=== PATIENT | female | born 1990 | race Caucasian/White ===

== ENCOUNTER 2021-12-25 16:57 | Outpatient (CLI) | payer BC, SELFPAY ==
--- NOTE | 2021-12-25 17:00 | CRLHL7_ITS ---
For Patients: As a result of the Century Cures Act, medical imaging exams and procedure reports are released immediately into your electronic medical record. You may view this report before your referring provider. If you have questions, please contact your health care provider. INDICATION: Pelvic pain COMPARISON: none TECHNIQUE: 2D escalante scale and color Doppler images were acquired of the pelvis using a transabdominal and transvaginal approach. Spectral Doppler evaluation of the ovaries also performed. FINDINGS: Heart shaped septate uterus is noted with the right endometrial horn measuring 1.4 cm and the left endometrial horn measuring 1.1 cm. Uterus measures 8.9 cm in length by 4.5 cm in AP diameter by 6.5 cm in transverse dimension. No uterine fibroid. The right ovary measures 4.4 x 1.8 x 2.0 cm in size and the left ovary measures 5.7 x 3.2 x 2.8 cm. The ovaries demonstrate normal arterial and venous blood flow on color Doppler analysis. Normal spectral Doppler evaluation of the ovaries without torsion. Left ovarian volume is increased measuring 26 cc. There is also a hemorrhagic left ovarian cyst measuring 3.5 x 2.5 x 2.7 cm demonstrating typical internal reticular echoes. Mild physiologic free fluid. There are no suspicious fluid collections within the cul-de-sac. IMPRESSION: No ovarian torsion. 3.5 cm hemorrhagic left ovarian cyst. Dictated by Rony Tai MD @ 12/26/2021 10:31:25 AM (Electronically Signed)
== END 2021-12-25 16:58 | disposition home or self-care (01) ==
LOC: US 16:58
PROVIDERS: Visit Provider Obstetrics & Gynecology
DX: R10.2 Pelvic and perineal pain (principal); N83.202 Unspecified ovarian cyst, left side
CPT/HCPCS: 76830; 76856; 93976

== ENCOUNTER 2022-01-23 07:42 | Day surgery (SDC) | payer BC, SELFPAY ==
[2022-01-23] VITALS (13 sets, daily range): BP systolic 104–144; BP diastolic 58–87; PULSE 62–100; RESP 12–18; TEMP 36.4–36.6; O2SAT 95–100; BMI 22.2
[2022-01-23] MEDS: LACTATED RINGERS 1000 ML 1,000 ML 100 ML IV (08:05)
[2022-01-23] MEDS: SODIUM CHLORIDE 0.9 % (FLUSH) 10 ML SYRINGE IVF (08:05)
[2022-01-23 08:27] LABS: Ur HCG Qualitative* Negative (Negative)
[2022-01-23 08:42] LABS: Hemoglobin* 11.9 gm/dL (12.0-16.0)
[2022-01-23] MEDS: DOXYCYCLINE HYCLATE 100 MG CAPSULE 200 MG PO (08:53)
[2022-01-23] MEDS: BUPIVACAINE 0.5% 30 ML INJECTION (11:15)
--- NOTE | 2022-01-23 13:13 | W.ANESCHARGE ---
Anesthesia Charges Start Date/Time Anesthesia Start Date: 01/23/22 Anesthesia Start Time: 10:42 Stop Date/Time Anesthesia Stop Date: 01/23/22 Anesthesia Stop Time: 13:20 Summary Emergency: No
[2022-01-23] MEDS: MEPERIDINE 25 MG/ML INJ 12.5 MG IVP (13:17)
[2022-01-23] MEDS: KETOROLAC 30 MG/ML inj IVP (13:29)
--- NOTE | 2022-01-23 13:32 | W.ANESCHARGE ---
Anesthesia Charges Start Date/Time Anesthesia Start Date: 01/23/22 Anesthesia Start Time: 10:42 Stop Date/Time Anesthesia Stop Date: 01/23/22 Anesthesia Stop Time: 13:20 Summary Emergency: No
[2022-01-23] MEDS: ACETAMINOPHEN 1,000 MG/100 ML INJ 1000 MG IVPB (13:43)
[2022-01-23] MEDS: METOCLOPRAMIDE HCL 5 MG/ML INJ 10 MG IVP (13:55)
[2022-01-23] MEDS: PROMETHAZINE 25 MG/ML INJ 12.5 MG IVP (15:00)
--- NOTE | 2022-01-24 08:19 | P.GYNPRC_ITS ---
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 Intrauterine survey with hysteroscopy: Fundal indentation of more than 1cm. Bilateral tubal ostia seen. Intra abdominal survey: Grossly normal liver, gallbladder, stomach, intestines. Pelvis: Endometriosis implants at the anterior cul de sac, anterior abdominal wall, there are some lesions that look dark brown in color, others look as clear vesicles with associated scarring. Endometrial implants seen at the bilateral uterosacral ligaments with associated scarring. Small implants seen at the bilateral ovarian fossae. Uterine fundus is NOT heart shaped, anterior uterine wall a subserosal fibroid is seen of about 2cm. Posterior uterine wall a small fibroid of about 1cm is seen, this also seems subserosal. Endometriosis lesions are seen at the uterine fundus. Right fallopian tube is grossly normal, right ovary with a small pinpoint endometriosis like implant, otherwise grossly normal. Left sigmoid epiploica thin adhesions to the left pelvic sidewall impeding visualization of the left fallopian tube and ovary, left fallopian tube and ovary initially adhered and unable to flip for visualization, after lysis of adhesions, left fallopian tube looked thicker, convoluted and adhered to the left infundibulopelvic ligament. Left ovary of normal size with evidence of a small hemorrhagic cyst of about 1- 2cm. Chromopertubation study: No spillage of dye through the left fallopian tube, it looked to remain stuck at the ampullary region. Easy spillage of dye seen from the right fallopian tube. Patient was taken to the OR with IV fluid running and pneumatic compression stockings applied to the lower extremities. General anesthesia was obtained without difficulty. The patient was placed in the dorsal lithotomy position with Mina type stirrups with knee bent at 30 degree angles. Patient was prepared and draped under usual sterile technique. Examination under anesthesia revealed a normal size, midline uterus. The bladder was emptied and Tanner catheter placed. Speculum was placed in the vagina.0.5% Marcaine was injected at 2 and 11 o'clock a total of about 5mL utilized. A single-tooth tenaculum was used to grasp the anterior lip of the cervix. The uterus was carefully sounded to 8 cm. The cervical os was sequentially dilated to accommodate the 5 mm TrueClear hysteroscope using Hegar dilators. A 5 mm 30 degree TrueClear hysteroscope was introduced under direct visualization, and the uterus was distended with normal saline. Findings as above. Pictures taken for documentation purposes. A uterine manipulator was introduced. Two Allis clamps were applied to the periumbilical skin for manual elevation of the abdomen. A vertical skin incision was made in the umbilical fold. 5 mm Optiview trocar introduced into the peritoneal cavity without difficulty. Direct visualization confirmed intraperitoneal placement. Pneumoperitoneum was established with CO2 gas to a pressure of 15mmHg. Findings as above. An intra- abdominal survey revealed normal-appearing liver, gallbladder, spleen, and lack of any visceral or vascular injury. The Trendelenburg position was obtained to facilitate pelvic exposure. One 5 mm trocars was inserted on the left lower quadrant under direct laparoscopic visualization. A second 5mm trocar was inserted at the level of the umbilicus about 4cm to the left of the umbilicus under direct visualization. Findings as above. Anterior peritoneum/abdominal wall endometriosis implants were excised utilizing laparoscopic [place] and scissors. Other implants were fulgurated utilizing [place] and monopolar energy, always making sure that adequate elevation of the peritoneum was performed to avoid direct contact to any near structures such as the bladder. The left sigmoid colon epiploica thin adhesions were taken down sequentially with laparoscopic scissors. This allowed exposure to the left fallopian tube and ovary. Findings as above. Tubal dye study was performed next. Methylene blue dye, diluted solution in saline was introduced through uterine manipulator and laparoscopic visualization was performed. Findings as above. Decision made to perform left salpingectomy. Utilizing the LigaSure bipolar device, starting from the fimbrial end the mesosalpinx was sequentially clamped, coagulated and cut until the cornual end. Hemostasis secured.Left fallopian tube was easily removed via 5 mm trocar. Slight continued bleeding seen from the left infundibulopelvic ligament peritoneum where fallopian tube was adhered and this was coagulated with [place] and monopolar energy, making sure that the bowel was far away and that the instrument was not touching any other instrument to avoid coupling. Hemostasis was secured. Posterior cul de sac and uterosacral ligaments endometriosis implants, some other were excised and others were fulgurated, on the right side some were difficult to access and close to the ureter decision was made to not touch those. Resection sites were again inspected, hemostasis documented. For further hemostasis, Josse was utilized at resection sites. Trocars removed under direct visualization. All instruments were removed from the abdomen and vagina. The pneumoperitoneum was released, and correct instrument counts were confirmed. Skin incisions were closed with 4-0 Monocryl sutures in a subcuticular fashion. The patient was taken to the recovery room in a stable condition. Patient will be discharged from recovery after all the criteria are met for discharge. She was given instructions regarding follow-up visit in 2 weeks at the [facility]. Postop pain management, lifting restrictions, intercourse restrictions were discussed with patient before surgery all questions were answered.
== END 2022-01-23 15:45 | disposition home or self-care (01) ==
PROVIDERS: PCP Family Medicine; Visit Provider Obstetrics & Gynecology
PROC: (CPT 49320; principal; 2022-01-23 10:30)
PROC: 0UDB8ZZ Extraction of Endometrium, Via Natural or Artificial Opening Endoscopic (ICD-10-PCS; CPT 58558; 2022-01-23 10:30)
DX: N97.8 Female infertility of other origin (principal); N97.1 Female infertility of tubal origin; R10.2 Pelvic and perineal pain; G89.29 Other chronic pain; N80.319 Endometriosis of the anterior cul-de-sac, unspecified depth; N80.C19 Endometriosis of the anterior abdominal wall, unspecified depth; N80.3C3 Endometriosis of bilateral uterosacral ligament(s), unspecified depth; N80.103 Endometriosis of bilateral ovaries, unspecified depth; D25.2 Subserosal leiomyoma of uterus; N73.6 Female pelvic peritoneal adhesions (postinfective); Q51.810 Arcuate uterus
CPT/HCPCS: 58350; 58662; 58661; 58555; 00840; 36415; 81025; 85018; Q9968; A9270; J0131; J0330; J1100; J1170; J1885; J2175; J2250; J2370; J2405; J2550; J2704; J2710; J2765; J3010; J3490; J7120

== ENCOUNTER 2022-03-14 19:24 | Outpatient (REF) | payer BC, SELFPAY | END 2022-03-14 19:25 | disposition home or self-care (01) | LOC: NPINS 19:24 | PROVIDERS: PCP Family Medicine | DX: N97.9 Female infertility, unspecified (principal) | CPT/HCPCS: 84443 ==